=== PATIENT | female | born 1990 | race Caucasian/White ===

== ENCOUNTER 2023-08-16 10:41 | Outpatient (CLI) | payer OTHER, SELFPAY ==
--- NOTE | ~2023-08-16 | MR_ITS ---
MRI of the lumbar spine Clinical History: Back pain Technique: Axial T2-weighted images, and sagittal T1-weighted, T2-weighted, and T2 fat-sat images wer e acquired. Findings: There is no fracture or subluxation of the lumbar spine. Vertebral bodies maintain normal h eight and alignment. No suspicious bone marrow signal abnormality seen. At L1-L2, L2-L3, L3-L4 at L4-L5, there is no disc bulge or herniation. There are moderate facet joint degenerative changes at these levels. No spinal canal stenosis or neural foraminal narrowing at thes e levels. At L5-S1, there is minimal disc bulge and moderate facet arthropathy. There is thecal sac compression which appears to be largely related to prominent epidural fat at this level. There is mild to modera te left neural foraminal narrowing. Right neural foramen preserved. Paravertebral soft tissues are otherwise unremarkable. Impression: Moderate to severe thecal sac compression L5-S1, largely related to prominent epidural fat at this le yousuf. Additional mild degenerative change, as above. Reviewed, dictated and finalized at location [facility] Impression: Moderate to severe thecal sac compression L5-S1, largely related to prominent e pidural fat at this level. Additional mild degenerative change, as above.
== END 2023-08-16 10:42 | disposition home or self-care (01) ==
PROVIDERS: Visit Provider Nurse Practitioner
DX: M54.42 Lumbago with sciatica, left side (principal); M48.061 Spinal stenosis, lumbar region without neurogenic claudication; M47.897 Other spondylosis, lumbosacral region; G95.29 Other cord compression; G89.29 Other chronic pain
CPT/HCPCS: 72148

== ENCOUNTER 2023-09-27 00:33 | Day surgery (SDC) | payer OTHER, SELFPAY ==
[2023-09-15 15:01] VITALS: BMI 39.9
--- NOTE | 2023-09-15 15:11 | PC.NURSE ---
Report to the Outpatient Waiting Room, entrance under the green pavilion located off [facility], at 1130 on 09/27/23. Planned Procedure Time: 1330. Time changes happen often and if your time is changed the preop area will call you the afternoon before. - You and your visitor will be asked to self-screen and do not enter if you have any COVID symptoms. - A mask is optional within the hospital at this time. Patients may have clear liquids (water, carbonated beverages, clear teas, apple juice) until 3 hours prior to surgery with a maximum of 20 ounces. - No food from midnight until time of surgery Take the following medications with a SIP of water the morning of surgery: Abilify, Lyrica, Vortioextine DO NOT STOP ANY OF YOUR OTHER PRESCRIPTION MEDICATIONS PRIOR TO SURGERY ?EXCEPT THE FOLLOWING Medications to discontinue per physician Vitamins and Supplements [address] Check with Dr. Yadav re: Meloxicam Please no make-up, nail surinamese, hairspray, perfume, deodorant, or body powder the day of surgery. No jewelry (including any body piercings) or valuables the day of surgery, leave them at home. Please take a shower or bath the night before, or the morning of, surgery with an antibacterial soap. Wear comfortable, loose fitting clothing. - Jewelry must be removed prior to entering the operating room. Rings and piercings that are not removed may be cut off. - The hospital will not accept responsibility for valuables. - Please leave all valuables, including medications, at home the day of surgery. If you are going home after surgery, a licensed recycler forklift driver truck driver must drive you home. - NO public transportation without another adult if you receive anesthesia. - We recommend that an adult stay with you for 24 hours following discharge. - We also recommend that you do not drive, make important decision, drink alcoholic beverages, or take any drugs that were not prescribed by your health care provider for at least 24 hours after your discharge time. Follow any additional instructions given to you from your surgeon. If you or anyone in your household have experienced Covid symptoms in the past week, please notify your surgeon or the nurse liaison at the phone number below for possible testing. Telephone instructions given to patient and asked if any additional questions and then verbalized understanding. Patient advised to call surgeon office or pre surgery nurse liaison [phone] if any additional questions.
--- NOTE | 2023-09-26 16:38 | PM.IMHP ---
H&P: HPI History of Present Illness Date/Time: 09/26/23 16:38 Chief Complaint: dysphagia Narrative: planned procedure Review of Systems Review of Systems: All systems reviewed & are unremarkable except as noted in HPI and below PMFSH Family History Family History Father Alcoholism Mother Depression Grandparent Lung cancer Depression Social History Social History Smoking status: Never smoker Second hand tobacco smoke exposure: No Alcohol intake: current Drinks per week: 1 Substance use: never Lack of Transportation: No Lack of Food: Never True Current Housing: I Have Housing Concerned About Future Housing: No Difficulty Paying Gas/Electric Bills: No Difficulty Paying for Meds: No Currently Unemployed: No Education: Bachelor's Degree Difficulty w/ Childcare or Family Care: No Living arrangements: with roommate(s) Spiritual care concerns: No Meds Home Medications and Allergies Home Medications Medication Instructions Recorded Confirmed Type aripiprazole 20 mg tablet (Abilify) 20 mg PO DAILY 03/29/23 09/15/23 History medroxyprogesterone 150 mg/mL 150 mg IM [id number] 03/29/23 09/15/23 History intramuscular suspension (Depo-Provera) multivitamin 1 tablet PO DAILY 03/29/23 09/15/23 History vortioxetine 10 mg tablet 10 mg PO DAILY 03/29/23 09/15/23 History (Trintellix) zolpidem 5 mg tablet (Ambien) 5 mg PO QHS 03/29/23 09/15/23 History azelastine 137 mcg (0.1 %) nasal 1 spray intranasal Q12H #30 mL 04/13/23 09/15/23 Rx spray aerosol pregabalin 100 mg capsule (Lyrica) 150 mg PO BID 04/13/23 09/15/23 History meloxicam 15 mg tablet 15 mg PO BID 09/15/23 09/15/23 History Allergies Allergy/AdvReac Type Severity Reaction Status Date / Time amoxicillin [From Augmentin] Allergy Unknown Diarrhea Verified 09/15/23 14:57 clavulanic acid Allergy Unknown Diarrhea Verified 09/15/23 14:57 [From Augmentin] Exam Narrative: remnant left-sided tonsil Assessment and Plan Assessment and plan (1) Remnant tonsil: Code(s): J35.8 - Other chronic diseases of tonsils and adenoids Status: Acute Assessment and Plan: ? plan or left-sided tonsillectomy Risks were discussed including bleeding infection damage to surrounding structures postoperative bleeding need for time off work time off school risk of pain he nor cottage use damage to any structure of the clavicles by myself damage to any structure induction and remains anesthesia including bleeding 3-5% chance of postoperative bleeding including vocal cord paralysis (2) Food sticks on swallowing: Code(s): R13.10 - Dysphagia, unspecified Status: Acute (3) Dysphagia: Code(s): R13.10 - Dysphagia, unspecified Status: Acute
[2023-09-27] VITALS (8 sets, daily range): BP systolic 103–136; BP diastolic 57–73; PULSE 84–104; RESP 12–16; TEMP 36.8; O2SAT 95–99
[2023-09-27] MEDS: LACTATED RINGERS 1,000 ML 30 ML IV CONT ×3 (06:30→09:58)
[2023-09-27] MEDS: ACETAMINOPHEN 500 MG TABLET 1000 MG PO (07:02)
--- NOTE | 2023-09-27 07:16 | WPDHPUPDATE1 ---
History and Physical Update Update Date/Time: 09/27/23 07:16 History and Physical has been reviewed, including an updated exam of the patient. There are NO changes in the patient's condition. Risks, benefits, and alternatives have been discussed and questions answered. Patient agrees to proceed with procedure.
--- NOTE | 2023-09-27 07:41 | P.PNAN_ITS ---
Anes - Initial Pre Proc Eval Procedure: Operation Date: 09/27/23 08:00 Proposed Procedures p Left Side Tonsillectomy - Philippe Yadav MD Date/Time: 09/27/23 07:41 Surgeon: Philippe Yadav MD Pre Op Diagnosis: remnant tonsil,dysphagia Patient Data Age: 32 Gender: F Height: 1.65 m Weight: 107.8 kg Allergies Allergy/AdvReac Type Severity Reaction Status Date / Time amoxicillin [From Augmentin] Allergy Unknown Diarrhea Verified 09/27/23 06:58 clavulanic acid Allergy Unknown Diarrhea Verified 09/27/23 06:58 [From Augmentin] Home Medications Medication Instructions Recorded Confirmed Type aripiprazole 20 mg tablet (Abilify) 20 mg PO DAILY 03/29/23 09/27/23 History medroxyprogesterone 150 mg/mL 150 mg IM [id number] 03/29/23 09/27/23 History intramuscular suspension (Depo-Provera) multivitamin 1 tablet PO DAILY 03/29/23 09/27/23 History vortioxetine 10 mg tablet 10 mg PO DAILY 03/29/23 09/27/23 History (Trintellix) zolpidem 5 mg tablet (Ambien) 5 mg PO QHS 03/29/23 09/27/23 History azelastine 137 mcg (0.1 %) nasal 1 spray intranasal Q12H #30 mL 04/13/23 09/27/23 Rx spray aerosol pregabalin 100 mg capsule (Lyrica) 150 mg PO BID 04/13/23 09/27/23 History meloxicam 15 mg tablet 15 mg PO BID 09/15/23 09/27/23 History Patient hx anesthesia problems: none Family hx anesthesia problems: none Results Review: All pre-operative results and documents have been reviewed as part of the pre- operative evaluation. [facility] Family History Family History Father Alcoholism Mother Depression Grandparent Lung cancer Depression Social History Social History Smoking status: Never smoker Second hand tobacco smoke exposure: No Alcohol intake: current Drinks per week: 1 Substance use: never Lack of Transportation: No Lack of Food: Never True Current Housing: I Have Housing Concerned About Future Housing: No Difficulty Paying Gas/Electric Bills: No Difficulty Paying for Meds: No Currently Unemployed: No Education: Bachelor's Degree Difficulty w/ Childcare or Family Care: No Living arrangements: with roommate(s) Spiritual care concerns: No Anes - Eval Final PreProcedure Day of Procedure 09/27/23 07:41 Patient weight: obese Heart: regular rate and rhythm Lungs: clear to auscultation Airway: Mallampati scale class II Neurological: alert and oriented Last oral intake: >/= 8 hours ASA classification: III Emergent: no Anesthetic plan: proceed Anesthesia type and monitoring: general ETT and standard monitoring Results Review: All pre-operative results and documents have been reviewed as part of the pre- operative evaluation. Informed Consent: The patient's anesthetic plan and its attendant risks and benefits were di scussed with the patient/family/POA. Questions were solicited and answers provided to the satisfaction of the patient/family/POA.
--- NOTE | 2023-09-27 07:56 | WPDHPUPDATE1 ---
History and Physical Update Update Date/Time: 09/27/23 07:56 History and Physical has been reviewed, including an updated exam of the patient. There are NO changes in the patient's condition. Risks, benefits, and alternatives have been discussed and questions answered. Patient agrees to proceed with procedure. Other than possible right tonsillectomy
--- NOTE | 2023-09-27 08:46 | P.OP_ITS ---
Procedure Note - Detailed Date of Procedure 09/27/23 Pre-op Diagnosis remnant tonsil,dysphagia Post-op Diagnosis Same Procedure Performed Bilateral tonsillectomy Surgeon Philippe Yadav MD Anesthesia General Indications dysphagia Findings small portion of the left inferior tonsil remained and was removed infected was so small I could grab it I just had to suction cauterize it often scraped off the pharyngeal musculature. Left side had a small portion on the anterior pillar this was cauterized with Bovie suction electrocautery and bipolar just to smooth it out. No bleeding at all. Description of Procedure Patient identified consent verified preop. Patient brought operating. Time- out performed. General anesthesia induced endotracheal tube secured. Patient prepped draped positioned procedure confirmed 2nd time-out performed. McIvor mouth gag inserted to reveal tonsils described above the left inferior pole removed with suction Bovie electrocautery setting of 8. Was scraped off the pharyngeal musculature. No bleeding. Very was again bipolar. Right side had a small HEPA anterior of tonsil tissue anterior kind of on the anterior pillar this was smoothed out with Bovie suction electrocautery also cauterized bipolar electrocautery both the setting of 8. Bleeding 0. McIvor mouth gag removed. I performed all dictated portions procedure. Care the patient back to Anesthesiology. No complications. Patient taken to PACU. Estimated Blood Loss 0 Drains No Packing No Pathology None sent Complications No immediate complications Condition Stable Disposition PACU [facility] Billing Surgery - Charge Forward: Surgery Billing
[2023-09-27] MEDS: fentaNYL CITRATE INJ (*CRX) 100 MCG/2 ML VIAL 25 MCG IV PUSH ×5 (08:58→09:58)
[2023-09-27] MEDS: ONDANSETRON INJ 4 MG/2 ML VIAL IV PUSH (09:58)
[2023-09-27] MEDS: oxyCODONE (*CRX) 5 MG/5 ML ORAL SOLN IR PO (10:36)
== END 2023-09-27 10:50 | disposition home or self-care (01) ==
PROVIDERS: Visit Provider Otolaryngology
PROC: (CPT 42826; principal; 2023-09-27 08:00)
DX: J35.8 Other chronic diseases of tonsils and adenoids (principal); R13.10 Dysphagia, unspecified; E66.9 Obesity, unspecified; Z68.39 Body mass index [BMI] 39.0-39.9, adult
CPT/HCPCS: 42826; A9270; J0330; J1100; J2250; J2405; J2704; J3010; J7120